=== PATIENT | male | born 1970 | race African-American/Black ===

== ENCOUNTER 2018-07-04 06:06 | Emergency (ER) | payer SELFPAY ==
[~2018-07-04] VITALS: Ht 188 cm; Wt 90.0 kg
[2018-07-04 07:46] LABS: BASOPHILS % 0.3 % (0.0-2.0); EOSINOPHILS % 2.8 % (0.0-5.0); HEMATOCRIT. 38.6 % (42.0-52.0); HEMOGLOBIN. 13.1 g/dL (14.0-18.0); LYMPHOCYTES % 12.3 % (20.0-50.0); MEAN CORPUSCULAR HEMOGLOBIN 29.4 pg (28.0-32.0); MEAN CORPUSCULAR VOLUME 86.7 fL (80.0-94.0); MEAN PLATELET VOLUME 7.2 fl (7.4-10.4); MONOCYTES % 9.2 % (2.0-8.0); NEUTROPHILS % 75.4 % (40.0-76.0); PLATELET 243 x1000/uL (130-400); RED BLOOD CELL COUNT 4.46 mill/uL (4.7-6.1); RED CELL DISTRIBUTION WIDTH 14.5 % (11.6-14.6)
[2018-07-04 07:53] LABS: CHLORIDE 106 mEq/L (98-107)
[2018-07-04 07:59] LABS: ETHANOL BLOOD < 10 mg/dL
[2018-07-04 08:23] LABS: CLARITY URINE CLEAR (CLEAR); COLOR URINE YELLOW (YELLOW); KETONES URINE NEGATIVE (NEGATIVE); LEUKOCYTE ESTERASE URINE NEGATIVE (NEGATIVE); NITRITE URINE NEGATIVE (NEGATIVE); OCCULT BLOOD URINE NEGATIVE (NEGATIVE); PROTEIN URINE NEGATIVE (NEGATIVE); SPECIFIC GRAVITY URINE 1.015 (1.005-1.030)
[2018-07-04 08:47] LABS: *AMPHETAMINES SCREEN URINE PRESUMTIVE POSITIVE (NEGATIVE); *BARBITURATES SCREEN URINE NEGATIVE (NEGATIVE); *BENZODIAZEPINES SCREEN URINE NEGATIVE (NEGATIVE); *COCAINE SCREEN URINE NEGATIVE (NEGATIVE); METHADONE URINE SCREEN NEGATIVE (NEGATIVE); OPIATES URINE SCREEN NEGATIVE (NEGATIVE); PHENCYCLIDINE URINE SCREEN NEGATIVE (NEGATIVE)
[2018-07-04 08:49] LABS: CANNABINOID URINE SCREEN NEGATIVE (NEGATIVE)
[2018-07-04] MEDS ORDERED: OLANZAPINE 5MG TABLET PO SCH (11:30)
[2018-07-04] MEDS ORDERED: LORAZEPAM 0.5MG TABLET PO ONE (12:15)
[2018-07-04] MEDS ORDERED: DIPHENHYDRAMINE 50MG/ML VIAL IM NR (19:30)
[2018-07-04] MEDS ORDERED: LORAZEPAM 2MG/ML CPJ IM NR (19:30)
[2018-07-04] MEDS ORDERED: ZIPRASIDONE MESYLATE 20MG/VIAL IM NR (19:30)
[2018-07-05 15:38] VITALS: BP 112/62
== END 2018-07-05 16:00 ==
LOC: ER 06:06
DX: R44.0 Auditory hallucinations (principal); R45.1 Restlessness and agitation; Z78.1 Physical restraint status; F31.9 Bipolar disorder, unspecified; F20.9 Schizophrenia, unspecified; F15.10 Other stimulant abuse, uncomplicated
CPT/HCPCS: 36415; 80053; 80305; 80307; 80329; 81003; 85025; 96372; 99285; G0482; J1200; J2060; J3486

== ENCOUNTER 2021-01-31 23:03 | Inpatient (IN) | payer MEDICAID ==
[~2021-01-31] VITALS: Ht 175.3 cm; Wt 118.8 kg
[2021-01-31] MEDS ORDERED: SODIUM CHLORIDE 0.9% 1000ML BAG (SEPSIS BOLUS) IV ONE (23:15)
[2021-01-31] MEDS ORDERED: ONDANSETRON HCL 4MG/2ML INJ IV STA (23:15)
[2021-01-31 23:53] LABS: BG BASE EXCESS -22.4 mmol/L (-2.0-2.0); BG FRACTION INSPIRED OXYGEN 21; BG HCO3 ACT 3.2 mmol/L (22.0-26.0); BG METHEMOGLOBIN 0.4 % (0.0-1.5); BG OXYHEMOGLOBIN 97.6 % (94.0-97.0); BG PCO2 9.1 mmHg (35.0-45.0); BG PH 7.165 (7.350-7.450); BG PO2 134.1 mmHg (75.0-100.0); BG SAMPLE SITE LH; BG TOTAL HEMOGLOBIN 15.4 g/dL (12.0-18.0); BG VENT MODE ROOM AIR
[2021-01-31 23:56] LABS: HEMATOCRIT. 46.7 % (42.0-52.0); HEMOGLOBIN. 15.2 g/dL (14.0-18.0); MEAN CORPUSCULAR HEMOGLOBIN 28.8 pg (28.0-32.0); MEAN CORPUSCULAR VOLUME 88.8 fL (80.0-94.0); MEAN PLATELET VOLUME 8.7 fl (7.4-10.4); PLATELET 309 x1000/uL (130-400); RED BLOOD CELL COUNT 5.26 mill/uL (4.7-6.1); RED CELL DISTRIBUTION WIDTH 15.1 % (11.6-14.6)
[2021-02-01] VITALS (53 sets, daily range): BP systolic 96–149; BP diastolic 49–101
[2021-02-01 00:04] LABS: CHLORIDE 96 mEq/L (98-107)
[2021-02-01 00:06] LABS: D-DIMER 0.63 mg/L FEU (<0.50); PARTIAL THROMBOPLASTIN TIME 30.8 sec (23.4-31.0); PROTHROMBIN TIME 10.6 sec (9.6-11.0)
[2021-02-01 00:07] LABS: CLARITY URINE CLOUDY (CLEAR); COLOR URINE YELLOW (YELLOW); KETONES URINE 4+ (NEGATIVE); LEUKOCYTE ESTERASE URINE NEGATIVE (NEGATIVE); NITRITE URINE NEGATIVE (NEGATIVE); OCCULT BLOOD URINE TRACE (NEGATIVE); PROTEIN URINE 1+ (NEGATIVE); SPECIFIC GRAVITY URINE 1.022 (1.005-1.030); UROBILINOGEN URINE 0.2 E.U./dL (0.2-1.0)
[2021-02-01 00:08] LABS: ETHANOL BLOOD < 10 mg/dL
[2021-02-01 00:22] LABS: *AMPHETAMINES SCREEN URINE NEGATIVE (NEGATIVE); *BARBITURATES SCREEN URINE NEGATIVE (NEGATIVE); *COCAINE SCREEN URINE NEGATIVE (NEGATIVE)
[2021-02-01 00:23] LABS: *BENZODIAZEPINES SCREEN URINE NEGATIVE (NEGATIVE); METHADONE URINE SCREEN NEGATIVE (NEGATIVE); OPIATES URINE SCREEN NEGATIVE (NEGATIVE); PHENCYCLIDINE URINE SCREEN NEGATIVE (NEGATIVE)
[2021-02-01 00:25] LABS: CANNABINOID URINE SCREEN NEGATIVE (NEGATIVE)
[2021-02-01] MEDS ORDERED: SODIUM CHLORIDE 0.9% 1,000 ML IV STA (00:36)
[2021-02-01] MEDS ORDERED: IOHEXOL-350 100 ML BOTTLE ONE (00:56)
[2021-02-01] MEDS ORDERED: INSULIN REGULAR (DRIP) 100 UNITS in SODIUM CHLORIDE 0.9% 99 ML IV SCH (01:00)
[2021-02-01] MEDS: POTASSIUM CHLORIDE 20MEQ TABLET SR PO ONE ×2 (01:11→01:37)
[2021-02-01] MEDS ORDERED: KCL 20MEQ/100ML PREMIX 100 ML IV ONE (01:30)
[2021-02-01 02:22] LABS: CHLORIDE 104 mEq/L (98-107)
[2021-02-01 02:28] LABS: PHOSPHORUS 4.9 mg/dL (2.5-4.9)
[2021-02-01 04:15] LABS: PLATELET ESTIMATE NORMAL
[2021-02-01 04:17] LABS: CHLORIDE 110 mEq/L (98-107)
[2021-02-01 04:24] LABS: PHOSPHORUS 3.4 mg/dL (2.5-4.9)
[2021-02-01] MEDS ORDERED: DEXTROSE 50% WATER 50ML SYRINGE IV PRN ×3 (06:30→17:15)
[2021-02-01] MEDS ORDERED: MORPHINE SULFATE 2 MG/ML CPJ (NOT FOR IM USE) IV PRN (06:30)
[2021-02-01] MEDS ORDERED: ACETAMINOPHEN 325MG TABLET PO PRN (06:30)
[2021-02-01 06:38] LABS: CHLORIDE 113 mEq/L (98-107)
[2021-02-01] MEDS: INSULIN REGULAR (DRIP) 100 UNITS in SODIUM CHLORIDE 0.9% 100 ML IV SCH ×2 (06:44→12:33)
[2021-02-01 06:49] LABS: PHOSPHORUS 2.9 mg/dL (2.5-4.9)
[2021-02-01] MEDS: BLOOD SUGAR DIAGNOSTIC STRIP TEST SCH ×13 (07:18→21:04)
[2021-02-01] MEDS: DEXT 5%/0.45% NACL KCL 20MEQ/L 1,000 ML IV SCH ×2 (07:48→15:12)
[2021-02-01] MEDS: PANTOPRAZOLE SODIUM 40 MG/VIAL IV SCH (08:50)
[2021-02-01] MEDS: ENOXAPARIN 30MG/0.3ML SYR SUBCUT SCH ×2 (08:50→21:03)
[2021-02-01] MEDS ORDERED: ENOXAPARIN 40MG/0.4ML SYR SUBCUT SCH (09:00)
[2021-02-01] MEDS ORDERED: RISP3 PO (09:49)
[2021-02-01 10:03] LABS: CHLORIDE 114 mEq/L (98-107)
[2021-02-01 10:10] LABS: PHOSPHORUS 2.4 mg/dL (2.5-4.9)
[2021-02-01] MEDS: RISPERIDONE 1MG TABLET PO SCH (12:28)
[2021-02-01 12:58] LABS: CHLORIDE 115 mEq/L (98-107)
[2021-02-01 15:59] LABS: CHLORIDE 117 mEq/L (98-107)
[2021-02-01 16:05] LABS: PHOSPHORUS 1.4 mg/dL (2.5-4.9)
[2021-02-01] MEDS ORDERED: INSULIN GLARGINE UD 100 UNITS/ML SYR SUBCUT SCH ×2 (18:00→22:00)
[2021-02-01 20:35] LABS: CHLORIDE 109 mEq/L (98-107)
[2021-02-01] MEDS: INSULIN LISPRO 100 UNITS/ML SUBCUT SCH (21:04)
[2021-02-02] VITALS (51 sets, daily range): BP systolic 76–173; BP diastolic 48–114
[2021-02-02 01:23] LABS: CHLORIDE 106 mEq/L (98-107)
[2021-02-02] MEDS ORDERED: POTASSIUM CHLORIDE 20MEQ TABLET SR PO SCH (01:45)
[2021-02-02 04:34] LABS: CHLORIDE 106 mEq/L (98-107)
[2021-02-02 04:44] LABS: BASOPHILS % 0.5 % (0.0-2.0); EOSINOPHILS % 1.6 % (0.0-5.0); HEMATOCRIT. 36.1 % (42.0-52.0); HEMOGLOBIN. 12.3 g/dL (14.0-18.0); MEAN CORPUSCULAR HEMOGLOBIN 29.1 pg (28.0-32.0); MEAN CORPUSCULAR VOLUME 85.1 fL (80.0-94.0); MEAN PLATELET VOLUME 8.3 fl (7.4-10.4); MONOCYTES % 8.9 % (2.0-8.0); PLATELET 248 x1000/uL (130-400); RED BLOOD CELL COUNT 4.25 mill/uL (4.7-6.1); RED CELL DISTRIBUTION WIDTH 15.3 % (11.6-14.6)
[2021-02-02] MEDS: INSULIN LISPRO 100 UNITS/ML SUBCUT SCH ×8 (05:42→21:51)
[2021-02-02] MEDS: BLOOD SUGAR DIAGNOSTIC STRIP TEST SCH ×4 (06:45→20:22)
[2021-02-02] MEDS: RISPERIDONE 1MG TABLET PO SCH (08:30)
[2021-02-02] MEDS: PANTOPRAZOLE SODIUM 40 MG/VIAL IV SCH (08:30)
[2021-02-02] MEDS: ENOXAPARIN 30MG/0.3ML SYR SUBCUT SCH ×2 (08:30→20:20)
[2021-02-02 09:15] LABS: CHLORIDE 106 mEq/L (98-107)
[2021-02-02] MEDS: METOPROLOL TARTRATE 50MG TABLET PO SCH ×2 (10:03→20:19)
[2021-02-02] MEDS: INSULIN GLARGINE UD 100 UNITS/ML SYR SUBCUT SCH ×2 (10:58→21:47)
[2021-02-02 12:30] LABS: CHLORIDE 105 mEq/L (98-107)
[2021-02-02 16:32] LABS: CHLORIDE 107 mEq/L (98-107)
[2021-02-02] MEDS ORDERED: POTASSIUM CHLORIDE 20MEQ TABLET SR PO NR (19:00)
[2021-02-03] VITALS (48 sets, daily range): BP systolic 54–149; BP diastolic 33–80
[2021-02-03 05:50] LABS: CHLORIDE 104 mEq/L (98-107)
[2021-02-03] MEDS: INSULIN LISPRO 100 UNITS/ML SUBCUT SCH ×8 (06:02→21:06)
[2021-02-03] MEDS: BLOOD SUGAR DIAGNOSTIC STRIP TEST SCH ×4 (06:03→21:00)
[2021-02-03] MEDS: METOPROLOL TARTRATE 50MG TABLET PO SCH ×2 (07:44→21:00)
[2021-02-03] MEDS ORDERED: SODIUM CHLORIDE 0.9% 500 ML IV ONE (07:45)
[2021-02-03] MEDS ORDERED: SODIUM CHLORIDE 0.9% 500 ML IV SCH ×2 (08:00→10:00)
[2021-02-03] MEDS: RISPERIDONE 1MG TABLET PO SCH (08:20)
[2021-02-03] MEDS: PANTOPRAZOLE SODIUM 40 MG/VIAL IV SCH (08:20)
[2021-02-03] MEDS: ENOXAPARIN 30MG/0.3ML SYR SUBCUT SCH ×2 (08:21→21:02)
[2021-02-03] MEDS ORDERED: MIDODRINE HCL 5MG TABLET PO NR (09:15)
[2021-02-03] MEDS ORDERED: INSULIN GLARGINE UD 100 UNITS/ML SYR SUBCUT SCH ×2 (10:00→22:00)
[2021-02-03] MEDS: DOCUSATE SODIUM 100MG CAPSULE PO SCH (16:36)
[2021-02-03] MEDS ORDERED: MIDODRINE HCL 5MG TABLET PO SCH (17:00)
[2021-02-03] MEDS: LORAZEPAM 2MG/ML CPJ IV PRN (23:47)
[2021-02-04] VITALS (33 sets, daily range): BP systolic 67–168; BP diastolic 29–105
[2021-02-04] MEDS ORDERED: LORAZEPAM 2MG/ML CPJ IV PRN (00:30)
[2021-02-04 05:59] LABS: BASOPHILS % 0.7 % (0.0-2.0); EOSINOPHILS % 1.4 % (0.0-5.0); HEMATOCRIT. 37.4 % (42.0-52.0); HEMOGLOBIN. 12.7 g/dL (14.0-18.0); LYMPHOCYTES % 18.1 % (20.0-50.0); MEAN CORPUSCULAR HEMOGLOBIN 28.6 pg (28.0-32.0); MEAN CORPUSCULAR VOLUME 84.5 fL (80.0-94.0); MEAN PLATELET VOLUME 8.8 fl (7.4-10.4); MONOCYTES % 12.8 % (2.0-8.0); PLATELET 225 x1000/uL (130-400); RED BLOOD CELL COUNT 4.43 mill/uL (4.7-6.1); RED CELL DISTRIBUTION WIDTH 14.9 % (11.6-14.6)
[2021-02-04 06:04] LABS: CHLORIDE 100 mEq/L (98-107)
[2021-02-04] MEDS: BLOOD SUGAR DIAGNOSTIC STRIP TEST SCH ×4 (06:16→20:12)
[2021-02-04] MEDS: INSULIN LISPRO 100 UNITS/ML SUBCUT SCH ×8 (06:22→20:20)
[2021-02-04] MEDS: DOCUSATE SODIUM 100MG CAPSULE PO SCH ×2 (08:10→17:18)
[2021-02-04] MEDS: PANTOPRAZOLE SODIUM 40 MG/VIAL IV SCH (08:10)
[2021-02-04] MEDS: RISPERIDONE 1MG TABLET PO SCH ×2 (08:10→20:19)
[2021-02-04] MEDS: ENOXAPARIN 30MG/0.3ML SYR SUBCUT SCH ×2 (08:11→20:19)
[2021-02-04] MEDS: LORAZEPAM 2MG/ML CPJ IV PRN (08:11)
[2021-02-04] MEDS: MIDODRINE HCL 5MG TABLET PO SCH ×2 (08:13→12:04)
[2021-02-04] MEDS ORDERED: RISPERIDONE 1MG TABLET PO SCH (09:00)
[2021-02-04] MEDS: INSULIN GLARGINE UD 100 UNITS/ML SYR SUBCUT SCH ×2 (10:34→20:41)
[2021-02-05] VITALS (7 sets, daily range): BP systolic 95–123; BP diastolic 54–87
[2021-02-05] MEDS: INSULIN LISPRO 100 UNITS/ML SUBCUT SCH ×8 (06:17→20:46)
[2021-02-05] MEDS: BLOOD SUGAR DIAGNOSTIC STRIP TEST SCH ×4 (06:18→20:48)
[2021-02-05] MEDS: RISPERIDONE 1MG TABLET PO SCH ×2 (06:40→20:42)
[2021-02-05] MEDS: ENOXAPARIN 30MG/0.3ML SYR SUBCUT SCH ×2 (09:23→20:43)
[2021-02-05] MEDS: PANTOPRAZOLE SODIUM 40 MG/VIAL IV SCH (09:23)
[2021-02-05] MEDS: DOCUSATE SODIUM 100MG CAPSULE PO SCH ×2 (09:23→17:17)
[2021-02-05] MEDS: INSULIN GLARGINE UD 100 UNITS/ML SYR SUBCUT SCH ×2 (09:48→21:17)
[2021-02-05] MEDS ORDERED: LANTUSUD SUBCUT (12:34)
[2021-02-05] MEDS: LORAZEPAM 2MG/ML CPJ IV PRN (17:18)
[2021-02-06] VITALS: BP 105/61
[2021-02-06 04:00] VITALS: BP 97/61
[2021-02-06] MEDS: BLOOD SUGAR DIAGNOSTIC STRIP TEST SCH ×4 (05:59→20:35)
[2021-02-06] MEDS: INSULIN LISPRO 100 UNITS/ML SUBCUT SCH ×8 (06:00→20:35)
[2021-02-06] MEDS: FAMOTIDINE 20MG TABLET PO SCH ×2 (06:10→17:26)
[2021-02-06 08:00] VITALS: BP 107/65
[2021-02-06] MEDS: DOCUSATE SODIUM 100MG CAPSULE PO SCH ×2 (09:15→17:26)
[2021-02-06] MEDS: RISPERIDONE 1MG TABLET PO SCH ×2 (09:15→20:32)
[2021-02-06] MEDS: INSULIN GLARGINE UD 100 UNITS/ML SYR SUBCUT SCH ×2 (09:22→21:39)
[2021-02-06] MEDS: ENOXAPARIN 30MG/0.3ML SYR SUBCUT SCH ×2 (09:23→20:31)
[2021-02-06 12:00] VITALS: BP 110/78
[2021-02-06 16:11] VITALS: BP 111/72
[2021-02-06 20:00] VITALS: BP 108/75
[2021-02-07] VITALS: BP 101/73
[2021-02-07 04:00] VITALS: BP 103/76
[2021-02-07] MEDS: FAMOTIDINE 20MG TABLET PO SCH ×2 (06:15→18:01)
[2021-02-07] MEDS: INSULIN LISPRO 100 UNITS/ML SUBCUT SCH ×4 (06:16→18:18)
[2021-02-07] MEDS: BLOOD SUGAR DIAGNOSTIC STRIP TEST SCH ×3 (06:17→18:00)
[2021-02-07 08:35] VITALS: BP 103/69
[2021-02-07] MEDS: ENOXAPARIN 30MG/0.3ML SYR SUBCUT SCH (09:04)
[2021-02-07] MEDS: RISPERIDONE 1MG TABLET PO SCH (09:04)
[2021-02-07] MEDS: DOCUSATE SODIUM 100MG CAPSULE PO SCH ×2 (09:04→18:01)
[2021-02-07] MEDS: INSULIN GLARGINE UD 100 UNITS/ML SYR SUBCUT SCH (10:13)
[2021-02-07] MEDS ORDERED: INSU100I13 SQ (10:57)
[2021-02-07] MEDS ORDERED: INSULIN LISPRO 100 UNITS/ML SUBCUT SCH ×2 (12:10→21:00)
[2021-02-07 12:15] VITALS: BP 108/70
[2021-02-07 13:49] VITALS: BP 109/72
[2021-02-07 20:00] VITALS: BP 103/62
== END 2021-02-07 22:20 | disposition home or self-care (01) | DRG 420 ==
LOC: ER 23:03 → ENRESERV 02-01 03:32 → CANRESERV 02-01 03:32 → ENRESERV 02-01 04:43 → MICUSO 02-01 05:47 → 8WST 02-04 20:50 → UNDODISIN 02-07 15:20
PROVIDERS: ADMIT Internal Medicine; ATTEND Internal Medicine
DX: E11.10 Type 2 diabetes mellitus with ketoacidosis without coma (principal); N17.0 Acute kidney failure with tubular necrosis; E87.8 Other disorders of electrolyte and fluid balance, not elsewhere classified; R45.851 Suicidal ideations; I95.9 Hypotension, unspecified; E87.1 Hypo-osmolality and hyponatremia; D72.829 Elevated white blood cell count, unspecified; K20.90 Esophagitis, unspecified without bleeding; F99 Mental disorder, not otherwise specified
CPT/HCPCS: 36415; 36600; 71045; 71275; 80048; 80053; 80305; 80307; 80320; 80329; 81003; 82010; 82375; 82805; 82962; 83036; 83605; 83735; 84100; 84145; 84443; 84484; 85025; 85379; 93005; 99291; C9113; J1650; J1815; J2060; J2405; J3480; J7030; J7040; J7050; Q9967; G0480